=== PATIENT | male | born 1960 | race American Indian/Alaskan Native ===

== ENCOUNTER 2020-07-05 11:37 | Emergency (ER) | payer SELFPAY | END 2020-07-05 11:52 | disposition left against medical advice (07) | LOC: ED 11:37 | DX: R19.7 Diarrhea, unspecified (principal); Z53.21 Procedure and treatment not carried out due to patient leaving prior to being seen by health care provider ==

== ENCOUNTER 2021-10-31 16:44 | Emergency (ER) | payer SELFPAY ==
[2021-10-31] MEDS ORDERED: LIDOCAINE-MPF (1%) 10 MG/1 ML VIAL 5 ML INFILTRATI ONE (19:23)
[2021-10-31] MEDS ORDERED: AZITHROMYCIN 250 MG TAB PO ONE (19:23)
--- NOTE | 2021-10-31 19:30 | Emergency Department Report ---
ED General Adult HPI - General Chief complaint: Skin/Abscess/Foreign Body Stated complaint: INGROWN HAIR, STD TEST Time Seen by Provider: 10/31/21 19:19 Source: patient Mode of arrival: Ambulatory Limitations: No Limitations - History of Present Illness Initial comments: Patient 58-year-old male who triage for a skin abscess to face and upper lip now now states he believes he has an STI with dysuria frequency and penile discharge. Discharge described as white-yellow with dysuria frequency and urgency. There are no perineal lesions or open wounds or drainage. Nominal pain nausea or vomiting. Upper lip abscess is secondary complaint. Patient states he had a "bump on his face that ruptured and once he squeezed it, releasing pus" - Related Data Previous Rx's Medication Instructions Recorded Last Taken Type HYDROcodone/APAP 10-325 [[place] 1 each PO Q6HR PRN #20 tablet 10/31/14 Unknown Rx 10/325] Ibuprofen [Motrin] 800 mg PO Q8H PRN #60 tablet 02/22/15 Unknown Rx traMADoL [Ultram] 50 mg PO Q6HR PRN #14 tablet 02/22/15 Unknown Rx Doxycycline Hyclate [Doxycycline 100 mg PO BID 7 Days #14 tab 10/31/21 Unknown Rx Hyclate TAB] Allergies Allergy/AdvReac Type Severity Reaction Status Date / Time No Known Allergies Allergy Verified 10/31/14 13:34 ED Review of Systems ROS: Stated complaint: INGROWN HAIR, STD TEST Other details as noted in HPI Constitutional: denies: chills, fever Eyes: denies: eye pain, eye discharge, vision change ENT: denies: ear pain, throat pain Respiratory: denies: cough, shortness of breath, wheezing Cardiovascular: as per HPI Endocrine: no symptoms reported Gastrointestinal: denies: abdominal pain, nausea, vomiting, diarrhea Genitourinary: denies: urgency, dysuria Musculoskeletal: denies: back pain, joint swelling, arthralgia Skin: other (abscess lip ) Neurological: denies: headache, weakness, paresthesias Psychiatric: denies: anxiety, depression Hematological/Lymphatic: denies: easy bleeding, easy bruising ED Past Medical Hx - Past Medical History Additional medical history: "chronic back pain" - Social History Smoking Status: Never Smoker Substance Use Type: None - Medications Home Medications: Home Medications Medication Instructions Recorded Confirmed Last Taken Type HYDROcodone/APAP 10-325 [[place] 1 each PO Q6HR PRN #20 tablet 10/31/14 Unknown Rx 10/325] Ibuprofen [Motrin] 800 mg PO Q8H PRN #60 tablet 02/22/15 Unknown Rx traMADoL [Ultram] 50 mg PO Q6HR PRN #14 tablet 02/22/15 Unknown Rx Doxycycline Hyclate [Doxycycline 100 mg PO BID 7 Days #14 tab 10/31/21 Unknown Rx Hyclate TAB] ED Physical Exam - General Limitations: No Limitations General appearance: alert, in no apparent distress - Head Head exam: Present: atraumatic, normocephalic, other (erythema upper lip no focal abscess no drainage pain to touch ) - Eye Eye exam: Present: normal appearance, EOMI Pupils: Present: normal accommodation - ENT ENT exam: Present: mucous membranes moist - Neck Neck exam: Present: normal inspection - Respiratory Respiratory exam: Present: normal lung sounds bilaterally. Absent: respiratory distress, wheezes - Cardiovascular Cardiovascular Exam: Present: regular rate, normal rhythm, normal heart sounds. Absent: systolic murmur, diastolic murmur, rubs, gallop - GI/Abdominal GI/Abdominal exam: Present: soft, normal bowel sounds. Absent: distended, tenderness, guarding, rebound, rigid, bruit, hernia - Rectal Rectal exam: Present: deferred - exam: Present: other (defered per patient ) - Extremities Exam Extremities exam: Present: normal inspection, normal capillary refill - Back Exam Back exam: Present: normal inspection, full ROM. Absent: tenderness, CVA tenderness (R), CVA tenderness (L) - Neurological Exam Neurological exam: Present: alert, oriented X3, CN II-XII intact, normal gait - Psychiatric Psychiatric exam: Present: normal affect, normal mood - Skin Skin exam: Present: warm, dry, intact, normal color, erythema (as above ). Absent: rash ED Medical Decision Making - Medical Decision Making This is a presumptive STI plan treat for STI, follow-up with health department for HIV and HSV screening. Patient will be DC'd home with prescriptions doxycycline should clear up mild cellulitis as well as treat urethritis. Patient will follow-up with primary care doctor in 2 to 3 days. And health department as directed. Verbalized agreement understanding discharge plan patient DC'd home in stable condition at this time. Critical care attestation.: If time is entered above; I have spent that time in minutes in the direct care of this critically ill patient, excluding procedure time. ED Disposition Clinical Impression: STI (sexually transmitted infection), Cellulitis, lip Disposition: 01 HOME / SELF CARE / HOMELESS Is pt being admited?: No Does the pt Need Aspirin: No Condition: Stable Instructions: Safe Sex, Cellulitis, Adult, [id number] Additional Instructions: Along with health department in 2 to 3 days for HIV and HSV testing. Take all m edication as prescribed, return to emergency department should symptoms worsen. Prescriptions: Doxycycline Hyclate [Doxycycline Hyclate TAB] 100 mg PO BID 7 Days #14 tab Referrals: [facility] [Outside] - 3-5 Days [facility] [Provider Group] - 3-5 Days Forms: Work/School Release Form(ED) Time of Disposition: 19:33
--- NOTE | 2021-10-31 20:01 | Event Note ---
Date of service: 10/31/21 Face to Face: For this encounter I have reviewed the PA/[employer] documentation, treatment plan, medical decision making, and I had face to face time with this patient.
[2021-10-31 20:28] VITALS: BP 140/80
== END 2021-10-31 20:27 | disposition home or self-care (01) ==
LOC: ED 16:44
DX: K13.0 Diseases of lips (principal); A64 Unspecified sexually transmitted disease
CPT/HCPCS: 96372; 99282; J0696; J3490